=== PATIENT | male | born 1965 | race Caucasian/White ===

== ENCOUNTER 2018-12-04 11:34 | Day surgery (SDC) | payer OTHER ==
[2018-12-04] MEDS ORDERED: PROPOFOL 40 ML (13:32)
[2018-12-04] MEDS ORDERED: LIDOCAINE 100 MG SYRINGE (13:32)
[2018-12-04] MEDS ORDERED: FENTAnyl 50 MCG/ML VIAL (13:33)
== END 2018-12-04 15:55 | disposition home or self-care (01) ==
LOC: GIL 11:34
DX: R19.4 Change in bowel habit (principal); K64.8 Other hemorrhoids; K21.9 Gastro-esophageal reflux disease without esophagitis
CPT/HCPCS: 43239; 88305; 88312